=== PATIENT | male | born 1985 | race Two or more races ===

== ENCOUNTER 2018-10-08 00:25 | Emergency (ER) | payer SELFPAY ==
[~2018-10-08] VITALS: Ht 162.6 cm; Wt 63.5 kg
--- NOTE | 2018-10-08 00:30 | NUR ---
ED Nurse Note: CINDA LOPEZ FROM [facility] C/O ETOH. PER EMS. PT FELL AND PRESENTS WITH LEFT UPPER LIP ABRASION X 0000. DENIES LOC. AO4. NAD. VSS. PRESENTS WITH SLURRED SPEECH.
[2018-10-08 00:32] VITALS: BP 124/82
--- NOTE | 2018-10-08 00:42 | Emergency Room Report ---
History of Present Illness General Chief Complaint: Alcohol Intoxication Source: Patient, EMS Present Illness HPI This is a 33-year-old male with no past medical history. He presents with chief made of alcohol intoxication. He at [place] [employer] [place] and has been drinking. He was intoxicated so was brought here. Patient denies any trauma does have abrasion to his lower lip. He denies falling. He denies any fever chills but denies any other trauma. Denies suicidal thoughts homicidal thoughts. No other complaint. Allergies: Coded Allergies: No Known Allergies (Unverified , 10/08/18) Patient History Past Medical History: see triage record, old chart reviewed Past Surgical History: none Pertinent Family History: none Social History: Reports: alcohol use Immunizations: other Reviewed Nursing Documentation: PMH: Agreed; PSxH: Agreed Nursing Documentation-PMH Past Medical History: No Stated History Review of Systems Eye: Denies: eye pain, blurred vision ENT: Denies: ear pain, nose congestion, throat swelling Respiratory: Denies: cough, shortness of breath Cardiovascular: Denies: chest pain, palpitations Gastrointestinal: Denies: abdominal pain, diarrhea, nausea, vomiting Musculoskeletal: Denies: back pain, joint pain Skin: Denies: rash Neurological: Denies: headache, numbness Endocrine: Denies: increased thirst, increased urine Hematologic/Lymphatic: Denies: easy bruising All Other Systems: negative except mentioned in HPI Physical Exam Vital Signs Date Time Temp Pulse Resp B/P (MAP) Pulse Ox O2 Delivery O2 Flow Rate FiO2 10/08/18 00:26 98.4 100 14 124/82 (96) 100 Room Air Vitals normal Sp02 EP Interpretation: reviewed, normal General Appearance: well appearing, no apparent distress, alert Head: normocephalic, atraumatic Eyes: bilateral eye PERRL, bilateral eye EOMI ENT: hearing grossly normal, normal pharynx, other - Small superficial abrasion to the lower lip. Neck: full range of motion, supple, no meningismus Respiratory: chest non-tender, lungs clear, normal breath sounds Cardiovascular #1: regular rate, rhythm, no murmur Gastrointestinal: normal bowel sounds, non tender, no mass, no organomegaly, no bruit, non-distended Musculoskeletal: back normal, gait/station normal, normal range of motion Psychiatric: mood/affect normal Skin: warm/dry Medical Decision Making Diagnostic Impression: Primary Impression: Acute alcoholic intoxication Qualified Codes: F10.920 - Alcohol use, unspecified with intoxication, uncomplicated Additional Impression: Abrasion of lip, initial encounter ER Course Patient presents with alcohol intoxication with lip abrasion. He probably tripped and bit his lip. It is not through and through. No head trauma. Will observe patient until clinical sobriety. Last Vital Signs Date Time Temp Pulse Resp B/P (MAP) Pulse Ox O2 Delivery O2 Flow Rate FiO2 10/08/18 00:32 100 14 Room Air 10/08/18 00:26 98.4 124/82 (96) 100 Status: improved Disposition: HOME, SELF-CARE Condition: Stable Scripts No Active Prescriptions or Reported Meds Patient Instructions: Alcohol Intoxication, [id number] Additional Instructions: Abstain from drinking to excess. Follow-up with your doctor in 7 days. Return if worse. Bennie James MD Oct 08, 2018 00:42
[2018-10-08 03:01] VITALS: BP 125/76
[2018-10-08 05:54] VITALS: BP 125/76
--- NOTE | 2018-10-08 05:55 | NUR ---
ED Nurse Note: Pt cleared by health care Provider for discharge. DC instructions/prescription was given and explained to pt and verbalized understanding of teachings. All medical deviecs such as ID band removed. Pt is AAO x4, ambulatory and left with all personal belongings.
== END 2018-10-08 05:55 | disposition home or self-care (01) ==
LOC: EDBD 00:25 → EMR 01:02
DX: F10.920 Alcohol use, unspecified with intoxication, uncomplicated (principal); S00.511A Abrasion of lip, initial encounter; X58.XXXA Exposure to other specified factors, initial encounter; Y92.9 Unspecified place or not applicable
CPT/HCPCS: 99282